=== PATIENT | male | born 1995 | race Caucasian/White ===

== ENCOUNTER 2019-05-14 17:39 | Emergency (ER) | payer SELFPAY ==
[~2019-05-14] VITALS: Ht 165.1 cm; Wt 75.7 kg
[2019-05-14 17:40] VITALS: Ht 165.1 cm; Wt 75.7 kg
[2019-05-14 19:57] VITALS: BP 105/58
== END 2019-05-14 19:57 | disposition home or self-care (01) ==
LOC: ED 17:39
DX: F41.9 Anxiety disorder, unspecified (principal); E78.00 Pure hypercholesterolemia, unspecified

== ENCOUNTER 2019-05-25 17:07 | Emergency (ER) | payer MEDICAID ==
[~2019-05-25] VITALS: Ht 170.2 cm; Wt 74.8 kg
[2019-05-25 17:25] VITALS: Ht 170.2 cm; Wt 74.8 kg
[2019-05-25 18:27] LABS: BASOPHIL % 0.5 % (0-2); PLATELET COUNT 224 x10^3mcL (130-400); RED CELL DISTRIBUTION WIDTH 14.4 % (11.5-14.5)
[2019-05-25 18:35] LABS: CALCIUM 8.9 mg/dL (8.5-10.1); CARBON DIOXIDE 33.8 mmol/L (21-32); CHLORIDE SERUM 101 mmol/L (98-107); CREATININE SERUM 1.2 mg/dL (0.7-1.3); GFR1 > 60 mL/min; GLUCOSE SERUM 82 mg/dL (74-106); POTASSIUM SERUM 4.2 mmol/L (3.5-5.1); SODIUM SERUM 139 mmol/L (136-145)
[2019-05-25 18:39] LABS: ALBUMIN 4.4 g/dL (3.4-5.0); ALKALINE PHOSPHATASE 68 U/L (46-116); ALT/SGPT 32 U/L (16-63); AST/SGOT 15 U/L (15-37); BILIRUBIN TOTAL 0.4 mg/dL (0.20-1.00); TOTAL PROTEIN, SERUM 7.3 g/dL (6.4-8.2)
[2019-05-25 18:52] LABS: FREE T4 0.9 ng/dL (0.76-1.46); FREE THYROXINE INDEX 2.1 ug/dL (1.4-4.5); T4(THYROXINE) 5.7 ug/dL (4.7-13.3)
[2019-05-25 18:57] LABS: AMPHETAMINE QUAL UR NONE DETECTED (See below)
[2019-05-25 19:03] LABS: T3 TOTAL 1.02 ng/mL
[2019-05-25 20:28] VITALS: BP 115/70
== END 2019-05-25 20:30 | disposition home or self-care (01) ==
LOC: ED 17:07
PROVIDERS: Emergency Medicine
DX: R42 Dizziness and giddiness (principal); F41.9 Anxiety disorder, unspecified; R00.2 Palpitations; E78.00 Pure hypercholesterolemia, unspecified; H53.8 Other visual disturbances; R06.02 Shortness of breath; F17.200 Nicotine dependence, unspecified, uncomplicated
CPT/HCPCS: 36415; 84439; 99406; Q0092

== ENCOUNTER 2020-05-02 12:46 | Emergency (ER) | payer OTHER ==
[~2020-05-02] VITALS: Ht 165.1 cm; Wt 78.0 kg
[2020-05-02 13:07] VITALS: BP 110/58; Ht 165.1 cm; Wt 78.0 kg
== END 2020-05-02 14:16 | disposition home or self-care (01) ==
LOC: ED 12:46
DX: S16.1XXA Strain of muscle, fascia and tendon at neck level, initial encounter (principal); F07.81 Postconcussional syndrome; W22.8XXA Striking against or struck by other objects, initial encounter; Y93.89 Activity, other specified; Y92.89 Other specified places as the place of occurrence of the external cause; Y99.8 Other external cause status